=== PATIENT | male | born 1955 | race Two or more races ===

== ENCOUNTER 2024-01-19 20:48 | Emergency (ER) | payer MEDICARE, OTHER ==
[~2024-01-19] VITALS: Ht 162.6 cm; Wt 113.4 kg
[2024-01-19 21:17] VITALS: BP 138/54; TEMP 98.2; O2SAT 98
[2024-01-19] MEDS ORDERED: LIDOCAINE 2% JEL UROJET 10 ML MM ONE (21:21)
== END 2024-01-19 21:44 | disposition home or self-care (01) ==
LOC: ER 20:50
DX: R33.9 Retention of urine, unspecified (principal); Z87.442 Personal history of urinary calculi
CPT/HCPCS: 99284; 51702; J3490